=== PATIENT | female | born 1935 | race Caucasian/White ===

== ENCOUNTER 2017-01-06 13:04 | Outpatient (CLI) | payer MEDICARE, BC | END 2017-01-06 13:05 | disposition home or self-care (01) | DX: Z12.31 Encounter for screening mammogram for malignant neoplasm of breast (principal); Z85.3 Personal history of malignant neoplasm of breast; Z90.11 Acquired absence of right breast and nipple ==

== ENCOUNTER 2017-01-06 13:06 | Outpatient (CLI) | payer MEDICARE, BC | END 2017-01-06 13:07 | disposition home or self-care (01) | DX: Z53.9 Procedure and treatment not carried out, unspecified reason (principal) ==

== ENCOUNTER 2017-10-12 16:47 | Outpatient (CLI) | payer MEDICARE, BC ==
--- NOTE | 2017-10-12 18:06 | XRAY Report ---
EXAM: LEFT SHOULDER RADIOGRAPHY EXAM DATE: 10/12/2017 05:06 PM. CLINICAL HISTORY: Left shoulder pain since tripped and fell over carpet 2 days ago. COMPARISON: None. TECHNIQUE: 4 views. FINDINGS: Bones: Best seen on the Y view is a displaced scapular fracture inferior to the glenoid. No other tra umatic or destructive bone abnormality. Joints: The glenohumeral and acromioclavicular joints are normal. Soft tissues: The visualized hemithorax is unremarkable. IMPRESSION: Displaced scapular fracture inferior to the glenoid. [facility] Referring Provider Line: [phone] SITE ID: [id number]
== END 2017-10-12 16:48 | disposition home or self-care (01) ==
LOC: DI 16:47
PROVIDERS: ATTEND Internal Medicine
DX: S42.192A Fracture of other part of scapula, left shoulder, initial encounter for closed fracture (principal)

== ENCOUNTER 2017-10-12 17:15 | Emergency (ER) | payer MEDICARE, BC ==
[2017-10-12 19:20] VITALS: BP 120/73
--- NOTE | 2017-10-12 19:43 | ED Physician Documentation ---
PD HPI UPPER EXT INJURY - Stated complaint Stated Complaint: LT SHOULDER PAIN - Chief complaint Chief Complaint: Ext Problem - History obtained from History obtained from: Patient - History of Present Illness Location: Left, Shoulder Type of injury: Fall Where injury occurred: Home Timing - onset: How many days ago (3) Timing - duration: Days (3) Timing - details: Abrupt onset, Still present (lost balance and fell, landing to left shoulder. having pain back of shoulder since then, worse with attempted ROM of the shoulder.) Improved by: Immobilization Worsened by: Moving, Palpating Associated symptoms: No: Weakness, Numbness, Discolored Contributing factors: No: Anticoagulated, Prior ortho surgery Similar symptoms before: Has not had sx before Recently seen: Not recently seen Review of Systems Constitutional: denies: Fever, Chills Nose: denies: Rhinorrhea / runny nose, Congestion Throat: denies: Sore throat Cardiac: denies: Chest pain / pressure Respiratory: denies: Cough GI: denies: Abdominal Pain, Nausea, Vomiting, Diarrhea Skin: denies: Abrasion (s), Laceration (s) Musculoskeletal: reports: Joint pain (left scapula) Neurologic: denies: Generalized weakness, Focal weakness, Numbness, Confused, Altered mental status, Headache, Head injury PD PAST MEDICAL HISTORY - Past Medical History Past Medical History: Yes Cardiovascular: Hypertension Respiratory: None Neuro: None Endocrine/Autoimmune: None GI: None 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 : Other HEENT: None Psych: None Musculoskeletal: None Derm: None - Past Surgical History Past Surgical History: Yes /TERRA COTTA ROOFER HELPER: Hysterectomy HEENT: Tonsil/Adenoidectomy - Present Medications Home Medications: Ambulatory Orders Medication Instructions Recorded Confirmed Amlodipine Besylate [Norvasc] 2.5 mg PO DAILY 01/31/15 04/05/15 Aspirin [Aspir 81] 162 mg PO DAILY 01/31/15 04/05/15 Carvedilol 12.5 mg PO BID 01/31/15 04/05/15 Hydrochlorothiazide 12.5 mg PO DAILY 01/31/15 04/05/15 Lisinopril 10 mg PO DAILY 01/31/15 04/05/15 Lovastatin 20 mg PO DAILY 01/31/15 04/05/15 Naproxen 375 mg PO BID #20 tablet 10/12/17 Tramadol HCl 50 mg PO Q6H PRN #20 tablet 10/12/17 - Allergies Allergies/Adverse Reactions: Allergies Allergy/AdvReac Type Severity Reaction Status Date / Time erythromycin base Allergy Rash Verified 01/31/15 14:08 Penicillins Allergy Rash Verified 10/12/17 17:26 - Social History Does the pt smoke?: No Smoking Status: Never smoker Does the pt drink ETOH?: No Does the pt have substance abuse?: No - Immunizations Immunizations are current?: Yes - POLST Patient has POLST: No PD ED PE NORMAL - Extremities Extremities: No deformity, No tenderness to palpate, Other (left scapular area with tenderness to palpation. Some swelling in the area. Pain with any attempt of Fitz) - Neuro Neuro: Alert and oriented X 3, production leader 2-12 intact, No motor deficit, No sensory deficit Eye Opening: Spontaneous Motor: Obeys Commands Verbal: Oriented GCS Score: 15 - Psych Psych: Normal mood, Normal affect Results - Vitals Vitals: Oxygen O2 Source Room air PD MEDICAL DECISION MAKING - ED course Complexity details: considered differential (comes to ED from outpatient xray with Dx of scapular fracture. ), d/w patient Departure - Departure Disposition: 01 Home, Self Care Clinical Impression: Fall from slip, trip, or stumble Qualifiers: Encounter type: initial encounter Qualified Code(s): W01.0XXA - Fall on same level from slipping, tripping and stumbling without subsequent striking against object, initial encounter Scapular fracture Qualifiers: Encounter type: initial encounter Scapula location: neck Fracture type: closed Fracture alignment: displaced Laterality: left Qualified Code(s): S42.152A - Displaced fracture of neck of scapula, left shoulder, initial encounter for closed fracture Condition: Stable Record reviewed to determine appropriate education?: Yes Instructions: Fx Shoulder Blade Collarbone Follow-Up: María Mccarthy MD [Primary Care Provider] - Bety Chino MD [Provider Admit Priv/Credential] - Prescriptions: Naproxen 375 mg PO BID #20 tablet Tramadol HCl 50 mg PO Q6H PRN #20 tablet PRN Reason: Pain Comments: Use a sling for the arm to support it and decreased motion of the shoulder. Use naproxen or ibuprofen twice daily for the next 7-10 days. Add Tylenol or tramadol if needed for pains. Sleep and rest and the position of most comfort. Follow-up with orthopedics, call tomorrow for an appointment for later in the week or early next week. Discharge Date/Time: 10/12/17 20:33
[2017-10-12] MEDS ORDERED: ACETAMINOPHEN 325 MG TABLET PO STA (19:59)
[2017-10-12] MEDS ORDERED: IBUPROFEN 400 MG TABLET PO STA (19:59)
[2017-10-12] MEDS ORDERED: traMADol 50 MG TABLET PO STA (19:59)
== END 2017-10-12 20:33 | disposition home or self-care (01) ==
LOC: ED 17:15
DX: S42.152A Displaced fracture of neck of scapula, left shoulder, initial encounter for closed fracture (principal); S42.192A Fracture of other part of scapula, left shoulder, initial encounter for closed fracture; W18.30XA Fall on same level, unspecified, initial encounter; W22.09XA Striking against other stationary object, initial encounter; Y92.009 Unspecified place in unspecified non-institutional (private) residence as the place of occurrence of the external cause; I10 Essential (primary) hypertension; Z79.82 Long term (current) use of aspirin
CPT/HCPCS: 73030; 99283; A9270

== ENCOUNTER 2018-02-04 08:29 | Outpatient (CLI) | payer MEDICARE, BC ==
--- NOTE | 2018-02-04 13:24 | Ultrasound Report ---
COMPLETE ABDOMINAL ULTRASOUND: 02/04/2018 CLINICAL INDICATION: Hypertension, abnormal weight loss. COMPARISON: 09/06/2013. TECHNIQUE: Real-time scanning was performed with event sales representative static images obtained. FINDINGS: The liver measures 15 cm. Hepatic echogenicity is again increased, compatible with fatty infiltration. No focal parenchymal lesion or intrahepatic biliary dilatation is present. The common bile duct measures 3 mm. The gallbladder is normal. The visualized pancreas demonstrates no focal abnormality. The right kidney is surgically absent. The left kidney measures 11.1 cm, and demonstrates no hydronephrosis. The spleen measures 10.5 cm, and demonstrates normal echotexture. The visualized abdominal aorta is normal in caliber. The inferior vena cava is unremarkable. No free fluid is present. IMPRESSION: STABLE FATTY INFILTRATION OF THE LIVER AND CHANGES OF RIGHT NEPHRECTOMY. TD: 02/04/2018 12:52
== END 2018-02-04 08:30 | disposition home or self-care (01) ==
LOC: DI 08:29
PROVIDERS: ATTEND Internal Medicine
DX: K76.0 Fatty (change of) liver, not elsewhere classified (principal)
CPT/HCPCS: 76700

== ENCOUNTER 2018-02-05 10:53 | Outpatient (CLI) | payer MEDICARE, BC ==
--- NOTE | 2018-02-05 16:03 | XRAY Report ---
TWO VIEW CHEST: 02/05/2018 CLINICAL INDICATION: Hypertension. FINDINGS: Frontal and lateral views of the chest are compared to previous film of 10/07/2011. The cardiac silhouette is within normal limits. There is new airspace disease in the left upper lobe, with volume loss in the left hemithorax. No definite effusion or pneumothorax is seen. IMPRESSION: NEW LEFT-SIDED AIRSPACE DISEASE, WITH VOLUME LOSS. CHEST CT IS RECOMMENDED FOR FURTHER EVALUATION. TD: 02/05/2018 13:15
== END 2018-02-05 10:54 | disposition home or self-care (01) ==
LOC: DI 10:53
PROVIDERS: ATTEND Internal Medicine
DX: I10 Essential (primary) hypertension (principal); R91.8 Other nonspecific abnormal finding of lung field
CPT/HCPCS: 71046

== ENCOUNTER 2018-03-04 15:02 | Outpatient (CLI) | payer MEDICARE, BC ==
--- NOTE | 2018-03-04 15:36 | CT Report ---
Procedure Date: 03/04/2018 Accession Number: [id number] / [id number] Procedure: CT - Chest W/O CPT Code: FULL RESULT: EXAM: Chest W/O DATE: 03/04/2018 3:20 PM CLINICAL HISTORY: ABNORMAL CHEST XRAY FROM 02/05/18 COMPARISON: Chest x-ray 02/05/2018, chest CT 10/07/2011 TECHNIQUE: Routine helical CT imaging was performed through the chest. IV contrast: None. Reconstructions: Coronal and sagittal. In accordance with CT protocol optimization, one or more of the following dose reduction techniques were utilized for this exam: automated exposure control, adjustment of mA and/or KV based on patient size, or use of iterative reconstructive technique. FINDINGS: Lungs/Pleura: There is a moderate left pleural effusion present. There is new complete collapse of the left upper lobe, with filling of the left upper lobe bronchus. This may represent mucous plugging, but the possibility of an endobronchial mass cannot be excluded. Consider bronchoscopy for further evaluation. Mediastinum: Atherosclerotic calcifications of the arch and coronary arteries. Trace pericardial fluid. Bones: Degenerative changes. Visualized Abdomen: Changes of right nephrectomy. Other: None. IMPRESSION: New complete collapse of the left upper lobe, with filling of the left upper lobe bronchus, which may represent an endobronchial lesion. Correlation with bronchoscopy is recommended. Moderate left pleural effusion. [facility]
== END 2018-03-04 15:03 | disposition home or self-care (01) ==
LOC: DI 15:02
PROVIDERS: ATTEND Internal Medicine
DX: J98.19 Other pulmonary collapse (principal); J90 Pleural effusion, not elsewhere classified
CPT/HCPCS: 71250

== ENCOUNTER 2018-03-23 09:06 | Emergency (ER) | payer MEDICARE, BC ==
--- NOTE | 2018-03-23 09:51 | ED Physician Documentation ---
History of Present Illness - Stated complaint Stated Complaint: WEAKNESS/BACK PX/NOT EATING - Chief complaint Chief Complaint: General - Additonal information Additional information: hx from EMR and family 82 f pmhx HTN a fib HLD COPD congentitally abn erick ta breast cancer, gout, thrombocytosis for several months has had poor PO intake (just not hungry, not that it hurts to eat or she feels full or she has dysphagia, just not hungry) and progressive weakness all over unable to get out of bed at all yesterday so missed her PMD appt today was able to get out of bed but still generally weak no recent fall had severe low back pain 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 denies: Fever, Chills Throat: denies: Sore throat Cardiac: denies: Chest pain / pressure Respiratory: denies: Dyspnea, Cough GI: denies: Abdominal Pain, Nausea, Vomiting, Diarrhea, Bloody / black stool : denies: Dysuria, Unable to Void, Incontinent Musculoskeletal: reports: Back pain Neurologic: reports: Generalized weakness. denies: Focal weakness, Numbness, Headache Endocrine: denies: Easy bruising / bleeding Immunocompromised: denies: Immunocompromised PD PAST MEDICAL HISTORY - Past Medical History Cardiovascular: Hypertension Respiratory: None Endocrine/Autoimmune: None GI: None LACQUER SHADER: None : Other HEENT: None Psych: None Musculoskeletal: None Derm: None - Past Surgical History Past Surgical History: Yes /LACQUER SHADER: Hysterectomy HEENT: Tonsil/Adenoidectomy - Present Medications Home Medications: Ambulatory Orders Medication Instructions Recorded Confirmed Amlodipine Besylate [Norvasc] 2.5 mg PO DAILY 01/31/15 04/05/15 Aspirin [Aspir 81] 162 mg PO DAILY 01/31/15 04/05/15 Carvedilol 12.5 mg PO BID 01/31/15 04/05/15 Hydrochlorothiazide 12.5 mg PO DAILY 01/31/15 04/05/15 Lisinopril 10 mg PO DAILY 01/31/15 04/05/15 Lovastatin 20 mg PO DAILY 01/31/15 04/05/15 Naproxen 375 mg PO BID #20 tablet 10/12/17 Tramadol HCl 50 mg PO Q6H PRN #20 tablet 10/12/17 Lidocaine Patch 5% [Lidoderm Patch] 1 each TOP DAILY PRN #10 patch 03/23/18 - Allergies Allergies/Adverse Reactions: Allergies Allergy/AdvReac Type Severity Reaction Status Date / Time erythromycin base Allergy Rash Verified 01/31/15 14:08 Penicillins Allergy Rash Verified 10/12/17 17:26 - Social History Does the pt smoke?: No Smoking Status: Never smoker Does the pt drink ETOH?: No Does the pt have substance abuse?: No - Immunizations Immunizations are current?: Yes - POLST Patient has POLST: No PD ED PE NORMAL - Vitals Vital signs reviewed: Yes - General General: Alert and oriented X 3 - HEENT HEENT: PERRL (pale conj). No: Moist mucous membranes (sticky) - Neck Neck: Supple, no meningeal sign - Cardiac Cardiac: RRR - Respiratory Respiratory: Other (decreased) - Abdomen Abdomen: Soft, Non tender, Other (no pulsatile mass) - Back Back: Other (no focal spine TTP redness swelling warmtth, able to sit up with assist) - Derm Derm: Other (pale) - Extremities Extremities: No tenderness to palpate, Normal ROM s pain, No edema - Neuro Neuro: Alert and oriented X 3, electronic train control technician 2-12 intact, No motor deficit, No sensory deficit, Normal speech, Other (generally weak all over - non focal) Eye Opening: Spontaneous Motor: Obeys Commands Verbal: Oriented GCS Score: 15 Results - Vitals Vitals: Vital Signs - 24 hr 03/23/18 03/23/18 03/23/18 09:10 10:47 14:23 Temperature 36.5 C Heart Rate 85 82 74 Respiratory 18 18 12 Rate Blood Pressure 158/95 H 144/80 H 129/80 O2 Saturation 94 95 95 Oxygen O2 Source Room air - Labs Labs: Laboratory Tests 03/23/18 03/23/18 03/23/18 09:25 09:25 09:25 WBC 9.4 RBC 4.87 Hgb 13.4 Hct 41.3 MCV 84.8 MCH 27.5 MCHC 32.4 RDW 13.6 Plt Count 528 H MPV 8.1 Neut # (Auto) 7.5 H Lymph # (Auto) 0.[address] [place] # (Auto) 1.1 H Eos # (Auto) 0.1 Baso # (Auto) 0.0 Absolute Nucleated RBC 0.00 Nucleated RBC % 0.0 Sodium 135 Potassium 3.7 Chloride 100 L Carbon Dioxide 25 Anion Gap 10.0 BUN 14 Creatinine 0.9 Estimated GFR (MDRD) 60 L Glucose 95 Calcium 9.6 Total Bilirubin 1.0 AST 20 ALT 17 Alkaline Phosphatase 86 Total Protein 7.9 Albumin 3.0 L Globulin 4.9 H Albumin/Globulin Ratio 0.6 L Lipase 31 TSH 3.49 Urine Color Urine Clarity Urine pH Ur Specific Rhine Urine Protein Urine Glucose (UA) Urine Ketones Urine Occult Blood Urine Nitrite Urine Bilirubin Urine Urobilinogen Ur Leukocyte Esterase Ur Microscopic Review Urine Culture Comments 03/23/18 12:46 WBC RBC Hgb Hct MCV MCH MCHC RDW Plt Count MPV Neut # (Auto) Lymph # (Auto) [facility] # (Auto) Eos # (Auto) Baso # (Auto) Absolute Nucleated RBC Nucleated RBC % Sodium Potassium Chloride Carbon Dioxide Anion Gap BUN Creatinine Estimated GFR (MDRD) Glucose Calcium Total Bilirubin AST ALT Alkaline Phosphatase Total Protein Albumin Globulin Albumin/Globulin Ratio Lipase TSH Urine Color YELLOW Urine Clarity CLEAR Urine pH 6.0 Ur Specific Rhine 1.020 Urine Protein NEGATIVE Urine Glucose (UA) NEGATIVE Urine Ketones 15 H Urine Occult Blood NEGATIVE Urine Nitrite NEGATIVE Urine Bilirubin NEGATIVE Urine Urobilinogen 0.2 (NORMAL) Ur Leukocyte Esterase NEGATIVE Ur Microscopic Review NOT INDICATED Urine Culture Comments NOT INDICATED - Rads (name of study) CT chest Radiology: See rad report (collapsed left upper lobe with increased pleural fluid MACI and slightly increase L pleural effusion) CT AP Radiology: See rad report (unremarkable, no explanation for back pain, no AAA, no mets to spine, R kidney surgically absent) PD MEDICAL DECISION MAKING - ED course ED course: spoke to family, PMD Dr Mccarthy and radiologist at [facility] and am able to arrange for pt to have guided diagnostic thoracentesis by rads - PMD to submit order for tap and fluid analysis - and also to pulm for bronchoscopy pt ate in ER (drank a whole enrure and ate half n egg salad sandwich) and also received IVF family feels they can safely care for her at home - have walkers etc if she is weak pt is still weak malnourished and ill but feel she is stable and well supported enough to continue her work up as an outpatient - Sepsis Event Vital Signs: Vital Signs - 24 hr 03/23/18 03/23/18 03/23/18 09:10 10:47 14:23 Temperature 36.5 C Heart Rate 85 82 74 Respiratory 18 18 12 Rate Blood Pressure 158/95 H 144/80 H 129/80 O2 Saturation 94 95 95 Oxygen O2 Source Room air Departure - Departure Disposition: Home, Self Care Clinical Impression: Dehydration, Pleural effusion Condition: Poor Instructions: ED Dehydration, ED Effusion Pleural Follow-Up: María Mccarthy MD [Primary Care Provider] - Prescriptions: Lidocaine Patch 5% [Lidoderm Patch] 1 each TOP DAILY PRN #10 patch PRN Reason: Pain Comments: The labs were fine except for dehydration The CT of the chest showed collapse of one lobe of the lung, fluid in the lung and a possible mass. The [facility] radiologist will drain this fluid and Dr Mccarthy will order tests to be run on the fluid to see if it is infection or cancer You may also need to see a hydrate thickener operator to have a test called bronchoscopy [place] IV fluids here in the ER, and with such a supportive family I think you can go home for now. Please try to drink at least three Endures a day and if you are feeling weak, use a walker to prevent falls The hospital will call you to schedule the fluid drainage Return if worse You can use tylenol and lidocaine patches as needed for any pain Discharge Date/Time: 03/23/18 16:01
[2018-03-23] MEDS ORDERED: D5.45NS W/20 MEQ KCL 1,000 ML IV STA (09:52)
[2018-03-23] MEDS ORDERED: SODIUM CHLORIDE 0.9% 1,000 ML IV ONE (09:52)
[2018-03-23] MEDS ORDERED: LIDOCAINE PATCH 5% TOP PRN (09:53)
[2018-03-23] MEDS ORDERED: ACETAMINOPHEN 325 MG TABLET PO STA (09:53)
[2018-03-23 10:01] LABS: BASOPHILS % (AUTO) 0.5 %; EOSINOPHILS # (AUTO) 0.1 10^3/uL (0.0-0.7); EOSINOPHILS % (AUTO) 0.6 %; HGB - HEMOGLOBIN 13.4 g/dL (12.0-16.0); LYMPHOCYTES # (AUTO) 0.7 10^3/uL (1.5-3.5); LYMPHOCYTES % (AUTO) 7.8 %; MEAN CORPUSCULAR HEMOGLOBIN 27.5 pg (27.0-31.0); MEAN CORPUSCULAR HGB CONC 32.4 g/dL (32.0-36.0); MEAN CORPUSCULAR VOLUME 84.8 fL (81.0-99.0); MEAN PLATELET VOLUME 8.1 fL (7.9-10.8); MONOCYTES # (AUTO) 1.1 10^3/uL (0.0-1.0); MONOCYTES % (AUTO) 11.6 %; NEUTROPHILS # (AUTO) 7.5 10^3/uL (1.5-6.6); NEUTROPHILS % (AUTO) 79.5 %; PLT - PLATELET COUNT 528 10^3/uL (130-450); RED BLOOD COUNT 4.87 10^6/uL (4.20-5.40); RED CELL DISTRIBUTION WIDTH 13.6 % (12.0-15.0); WHITE BLOOD COUNT 9.4 x10^3/uL (4.8-10.8)
[2018-03-23 10:31] LABS: ALBUMIN/GLOBULIN RATIO 0.6 (1.0-2.2); CALCIUM 9.6 mg/dL (8.5-10.3); CREATININE 0.9 mg/dL (0.4-1.0); TOTAL PROTEIN 7.9 g/dL (6.7-8.2)
[2018-03-23] MEDS ORDERED: ACETAMINOPHEN 160 MG/5 ML SUSP UDC PO STA (10:42)
--- NOTE | 2018-03-23 10:55 | CT Report ---
Procedure Date: 03/23/2018 Accession Number: [id number] / [id number] Procedure: CT - Chest W/O CPT Code: FULL RESULT: EXAM: CT CHEST WITHOUT CONTRAST EXAM DATE: 03/23/2018 10:15 AM. CLINICAL HISTORY: 82-year-old female with difficulty eating and back pain. Prior abnormal chest CT. Reassessment. COMPARISONS: Similar prior study 03/04/2018. TECHNIQUE: Emergent axial helical CT imaging was performed through the chest. IV contrast: None. Reconstructions: Coronal and sagittal. In accordance with CT protocol optimization, one or more of the following dose reduction techniques were utilized for this exam: automated exposure control, adjustment of mA and/or KV based on patient size, or use of iterative reconstructive technique. FINDINGS: Lungs/Pleura: Complete collapsed left upper lobe again noted with increasing adjacent pleural fluid accumulation left upper lobe with increased pleural effusion left lung base as well. No discrete pulmonary nodules or masses. No infiltrates. No right pleural effusion. No pneumothorax bilaterally. Mediastinum: Heart size upper normal with moderate coronary artery calcification. No pericardial effusion. No pulmonary vascular congestion or adenopathy. Occlusion of the left upper lobe bronchus again noted. Bones: Unremarkable for age. No acute process or metastatic disease. Visualized Abdomen: To be discussed in detail on separate CT abdomen and pelvis report. Other: Bilateral breast implants noted with distortion of the right breast implant, as previously. IMPRESSION: Collapsed left upper lobe, as previously, with increased adjacent pleural fluid left upper lobe, as well as slight increase in moderate left basilar pleural effusion. No infiltrates, pneumothorax, pulmonary nodules or masses. [facility]
--- NOTE | 2018-03-23 11:03 | CT Report ---
Procedure Date: 03/23/2018 Accession Number: [id number] / [id number] Procedure: CT - Abdomen/Pelvis W/O CPT Code: FULL RESULT: EXAM: CT ABDOMEN AND PELVIS WITHOUT CONTRAST EXAM DATE: 03/23/2018 10:15 AM. CLINICAL HISTORY: 82-year-old female with weakness, difficulty eating and back pain. Prior abnormal chest CT. COMPARISONS: Abdominal ultrasound study of 02/04/2018. No prior abdominal or pelvic CT scan available for comparison. TECHNIQUE: Emergent axial helical CT imaging was performed through the abdomen and pelvis. IV contrast: None. Enteric contrast: None. Reconstructions: Coronal and sagittal. In accordance with CT protocol optimization, one or more of the following dose reduction techniques were utilized for this exam: automated exposure control, adjustment of mA and/or KV based on patient size, or use of iterative reconstructive technique. FINDINGS: Lung Bases: Discussed in detail on separate noncontrast chest CT report. Liver: Unremarkable on noncontrast imaging. Normal size and contour. No mass or cyst. Gallbladder/Bile Ducts: No gallstones, wall thickening or dilated bile ducts. Spleen: Normal. Pancreas: Normal. Adrenal Glands: Normal. Kidneys: Right kidney surgically absent. Left kidney unremarkable on noncontrast imaging. No nephrolithiasis or hydronephrosis. Peritoneal Cavity/Bowel: Normal. No diverticular disease, inflammatory bowel disease or bowel obstruction. Moderate amount of stool in the colon, particularly the right colon with some type of contrast or other iodinated material within the large bowel. Small bowel unremarkable. No free fluid, free air or adenopathy. No masses or acute inflammatory process. Pelvic Organs: Urinary bladder unremarkable. Uterus surgically absent. No free fluid or lymphadenopathy. Vasculature: No aneurysms or other significant abnormality. Bones: Unremarkable for age. No acute process or metastatic disease. Other: None. IMPRESSION: Unremarkable noncontrast abdominal and pelvic CT scan. No bowel obstruction or other demonstrated cause for the patient's symptoms. [facility]
[2018-03-23 13:06] LABS: GLUCOSE, URINE (UA) NEGATIVE (NEGATIVE); KETONES,URINE (UA) 15 mg/dL (NEGATIVE); LEUKOCYTE ESTERASE, URINE NEGATIVE (NEGATIVE); NITRITE,URINE NEGATIVE (NEGATIVE); OCCULT BLOOD,URINE NEGATIVE (NEGATIVE); PROTEIN,URINE NEGATIVE (NEGATIVE); UROBILINOGEN,URINE 0.2 (NORMAL) E.U./dL (NORMAL)
[2018-03-23 13:27] LABS: BILIRUBIN,URINE NEGATIVE (NEGATIVE); CLARITY,URINE CLEAR (CLEAR); ICTOTEST,URINE NEGATIVE
[2018-03-23 14:24] VITALS: BP 129/80
== END 2018-03-23 16:01 | disposition home or self-care (01) ==
LOC: ED 09:06
DX: E86.0 Dehydration (principal); J90 Pleural effusion, not elsewhere classified; E78.5 Hyperlipidemia, unspecified; I10 Essential (primary) hypertension; Z85.3 Personal history of malignant neoplasm of breast; Z79.82 Long term (current) use of aspirin
CPT/HCPCS: 36415; 71250; 74176; 80053; 81003; 83690; 84443; 85025; 96365; 96366; 99283; 99284; A9270; 81001; 87086